=== PATIENT | male | born 1940 | race Caucasian/White ===

== ENCOUNTER → 2017-05-03 | Outpatient (CLI) | payer OTHER ==
[~2017-05-03] MED LIST: ALFU10TA23 PO; ALLO300T PO; ASCO500C PO; CELE200C PO; FURO40TA4 PO; LIDO700A4 TP; METO25TA4 PO; NAFT40GE TP; OMEG500C PO; OMEP40CA5 PO; POTA20TA12 PO; PREG200C PO; SIMV40TA PO; SITA100T PO; SPIR1POW3 MC; SPIR25TA3 PO; TORS20TA2 PO; TRAM50TA PO; UBID100C PO; WARF6TAB PO; [UNRECOGNIZED DRUG - CODE] TP
--- NOTE | 2017-05-03 12:47 | RAD ---
Indication pain. Injured doing on work. AP lateral and coned view targeted to the lumbosacral junction were obtained. Note is made of a CT examination of the lumbar spine 11/07/2010. No prior plain film imaging of the lumbar spine is available. Vertebral height is well maintained. Alignment is unremarkable. There is multilevel disc space narrowing with some associated degenerative endplate changes. Vacuum disc phenomenon is noted at several levels. Osteophytes to are seen at several levels. With regards to the lumbar spine no acute finding is seen. There is slight wedging of T12 which appears slightly more accentuated than on a CT examination of 11/07/2010. There is mild scoliosis of the lumbar spine. 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 Mild wedging of T12 the chronicity of which is not certain
--- NOTE | 2017-05-03 12:55 | RAD ---
Indication left hip pain. An AP view of the pelvis was obtained as well as a frog leg view of the left hip. There are mild degenerative changes involving the hips manifested as some slight joint space compartment narrowing. A fracture or acute finding involving the pelvis or left hip is not seen.
== END | disposition home or self-care (01) ==
LOC: DXRADRC 12:20
PROVIDERS: ATTEND Nurse Practitioner Family
DX: M47.896 Other spondylosis, lumbar region (principal); M41.86 Other forms of scoliosis, lumbar region; M16.12 Unilateral primary osteoarthritis, left hip; M48.54XA Collapsed vertebra, not elsewhere classified, thoracic region, initial encounter for fracture
CPT/HCPCS: 72100; 73501

== ENCOUNTER → 2017-05-07 | Outpatient (CLI) | payer MEDICARE, OTHER ==
--- NOTE | 2017-05-07 12:30 | RAD ---
CT lumbar spine without contrast 05/07/2017 Indication: Chronic lower back pain. History of laser disk repair 3 years ago. Comparison: CT lumbar spine 11/07/2010 Technique: Multiple axial CT images of the lumbar spine were obtained without intravenous contrast. Coronal and sagittal reformats are provided. Findings: There is dextroconvex scoliosis of the lumbar spine centered at L3. There is left lateral listhesis of L2 on L3 and right lateral listhesis of L3 on L4. There is vacuum disc phenomenon at T12-L1, L1-L2, L2-L3, L4-L5 and L5-S1. There is significant endplate sclerosis with disc height loss and subcortical cystic changes at L1-L2, L2-L3, L4-L5 and L5-S1. There is minimal retrolisthesis of L1 on L2 and L2 on L3. Vertebral body heights are maintained. No evidence for acute fracture. There is partial visualization of an infrarenal abdominal aortic aneurysm measuring at least 3.6 cm. Finding appears present on prior examination from 11/07/2010. Comparison is difficult to make given partial profiling. T12-L1: There is a diffuse disc bulge. There is mild facet arthropathy. There is mild right neural foraminal stenosis. Mild spinal canal stenosis. L1-L2: There is a posterior disc osteophyte complex. There is mild facet arthropathy. There is moderate right and moderate to severe left neural foraminal stenosis. There is mild spinal canal stenosis. L2-L3: There is a posterior disc osteophyte complex. There is moderate right and severe left facet arthropathy. Moderate right and severe left neuroforaminal stenosis. Mild spinal canal stenosis. L3-L4: There is a diffuse disc bulge. There is severe left and moderate right facet arthropathy. There is moderate right and severe left neuroforaminal stenosis. Mild spinal canal stenosis. L4-L5: There is minimal disc bulge. There is moderate to severe facet arthropathy. Moderate left and mild right neuroforaminal stenosis. No significant spinal canal stenosis. L5-S1: There is posterior disc osteophyte complex. There is severe facet arthropathy. Moderate right and mild left neural foraminal stenosis. No spinal canal stenosis. Impression: 1. There is interval worsening of dextroconvex scoliosis with left lateral listhesis of L2 on L3 with right lateral listhesis of L3 on L4. There is similar appearance of retrolisthesis of L1 on L2 and L2 on L3. 2. There is increase in degree of neural foraminal stenosis on the right at L2-L3 and L3-L4. 3. Partial visualization of an abdominal aortic aneurysm measuring maximally 3.6 cm. Further evaluation with CTA abdomen/pelvis may be of benefit. PQRS Compliance Statement: One or more of the following individualized dose reduction techniques were utilized for this examination: 1. Automated exposure control 2. Adjustment of the mA and/or kV according to patient size 3. Use of iterative reconstruction technique
== END | disposition home or self-care (01) ==
LOC: CT 08:49
PROVIDERS: ATTEND Nurse Practitioner Family
DX: M48.07 Spinal stenosis, lumbosacral region (principal); M51.26 Other intervertebral disc displacement, lumbar region; M41.86 Other forms of scoliosis, lumbar region; M12.88 Other specific arthropathies, not elsewhere classified, other specified site; I71.4 Abdominal aortic aneurysm, without rupture
CPT/HCPCS: 72131

== ENCOUNTER → 2018-08-11 | Outpatient (CLI) | payer MEDICARE, OTHER ==
[~2018-08-11] MED LIST changes: -SPIR25TA3 PO; +SPIR25TA5 PO
--- NOTE | 2018-08-11 10:11 | RAD ---
Ultrasound testicular 08/11/2018 Clinical indication: Testicular swelling. COMPARISON: None. FINDINGS: Right testis measures 3.6 x 3.4 x 4.8 cm with preservation of the intratesticular blood flow. There is a tiny intratesticular cyst in the inferior aspect of the right testis measuring 0.3 x 0.2 x 0.3 cm. There is a small right hydrocele. The visualized right epididymis is unremarkable. Left testis is homogeneous in echotexture with preservation of the intratesticular blood flow measuring 3.6 x 2.6 x 5.1 cm. The visualized left epididymis is unremarkable. There is a large left hydrocele. IMPRESSION: 1. No testicular torsion or evidence of acute epididymoorchitis. 2. Large left and small right hydroceles. Electronically signed by: Deep Miller MD (08/11/2018 10:06 AM) [facility]
== END | disposition home or self-care (01) ==
LOC: US 09:00
PROVIDERS: ATTEND Physician Assistant Medical
DX: N43.2 Other hydrocele (principal)
CPT/HCPCS: 76870

== ENCOUNTER 2020-04-08 13:12 | Emergency (ER) | payer MEDICARE, OTHER ==
[~2020-04-08] VITALS: Ht 190.5 cm; Wt 112.2 kg
[~2020-04-08 13:12] MED LIST changes: +OMEP40CA45 PO; -OMEP40CA5 PO
--- NOTE | 2020-04-08 13:41 | PHYS DOC ---
Past History Past Medical History: A-Fib, Cancer, Prostatitis Past Surgical History: Cancer Surgery, Pacemaker Alcohol Use: None General Adult EDM: Chief Complaint: PENIS PROBLEM HPI: HPI: Patient is a 79-year-old male who presents with a chief complaint of hematuria. Patient has a history of prostate cancer and had carbon seeds placed 2 days ago. Patient has a history of chronic A. fib and restart his Lovenox yesterday and noticed a dark urine that got worse overnight and into the morning. Patient noticed some clots coming from his penis. Patient denies any abdominal pain or distention. Patient denies any fevers, nausea or vomiting. Patient states he is able to void. Review of Systems: Review of Systems: Constitutional: Denies fever or chills Eyes: Denies change in visual acuity HENT: Denies nasal congestion or sore throat Respiratory: Denies cough or shortness of breath Cardiovascular: Denies chest pain or edema GI: Denies abdominal pain, nausea, vomiting, bloody stools or diarrhea : Complains of hematuria Musculoskeletal: Denies back pain or joint pain Integument: Denies rash Neurologic: Denies headache, focal weakness or sensory changes Endocrine: Denies polyuria or polydipsia Lymphatic: Denies swollen glands Psychiatric: Denies depression or anxiety Heart Score: Risk Factors: Risk Factors: DM, Current or recent (<one month) smoker, HTN, HLP, family history of CAD, obesity. Risk Scores: Score 0 - 3: 2.5% MACE over next 6 weeks - Discharge Home Score 4 - 6: 20.3% MACE over next 6 weeks - Admit for Clinical Observation Score 7 - 10: 72.7% MACE over next 6 weeks - Early Invasive Strategies Allergies: Allergies: Allergies Coded Allergies Type Severity Reaction Last Updated Verified diltiazem Allergy Unknown 12/04/13 Yes Physical Exam: PE: Constitutional: Well developed, well nourished, no acute distress, non-toxic appearance. [] HENT: Normocephalic, atraumatic, bilateral external ears normal, no trismus nose normal. [] Eyes: PERRLA, EOMI, conjunctiva normal, no discharge. [] Neck: Normal range of motion, no tenderness, supple, no stridor. [] Cardiovascular: Irregular, peripheral pulses intact Lungs & Thorax: Bilateral breath sounds clear, no respiratory distress Abdomen: , soft, no tenderness, no masses, no pulsatile masses. [] exam: Mild dried blood to the urethral meatus mild swelling to the left testicle no tenderness. Skin: Warm, dry, no erythema, no rash. [] Back: No tenderness, no CVA tenderness. [] Extremities: No tenderness, no cyanosis, no clubbing, ROM intact, no edema. [] Neurologic: Alert and oriented X 3, normal motor function, normal sensory function, no focal deficits noted. [] Psychologic: Affect normal, judgement normal, mood normal. [] Current Patient Data: Labs: Laboratory Tests Test 04/08/20 14:21 04/08/20 15:30 White Blood Count 4.2 x10^3/uL Red Blood Count 4.34 x10^6/uL Hemoglobin 13.2 g/dL Hematocrit 40.3 % Mean Corpuscular Volume 93 fL Mean Corpuscular Hemoglobin 30 pg Mean Corpuscular Hemoglobin Concent 33 g/dL Red Cell Distribution Width 17.0 % Platelet Count 132 x10^3/uL Neutrophils (%) (Auto) 61 % Lymphocytes (%) (Auto) 29 % Monocytes (%) (Auto) 8 % Eosinophils (%) (Auto) 2 % Basophils (%) (Auto) 1 % Neutrophils # (Auto) 2.6 x10^3uL Lymphocytes # (Auto) 1.2 x10^3/uL Monocytes # (Auto) 0.3 x10^3/uL Eosinophils # (Auto) 0.1 x10^3/uL Basophils # (Auto) 0.0 x10^3/uL Prothrombin Time 11.0 SEC Prothromb Time International Ratio 1.1 Sodium Level 141 mmol/L Potassium Level 3.1 mmol/L Chloride Level 104 mmol/L Carbon Dioxide Level 32 mmol/L Anion Gap 5 Blood Urea Nitrogen 20 mg/dL Creatinine 1.4 mg/dL Estimated GFR (Cockcroft-Gault) 49.1 Glucose Level 151 mg/dL Calcium Level 10.4 mg/dL Urine Collection Type Unknown Urine Color Red Urine Clarity Turbid Urine pH Urine Specific [place] Urine Protein Urine Glucose (UA) mg/dL Urine Ketones (Stick) mg/dL Urine Blood Urine Nitrite Urine Bilirubin Urine Urobilinogen Dipstick mg/dL Urine Leukocyte Esterase Urine RBC Tntc /HPF Urine WBC 0 /HPF Urine Squamous Epithelial Cells None /LPF Urine Bacteria 0 /HPF Current Medications Medications (Trade) Dose Ordered Sig/Sae Route PRN Reason Start Time Stop Time Status Last Admin Dose Admin Potassium Chloride (Klor-Con) 40 meq 1X ONCE PO 04/08/20 15:00 04/08/20 15:01 DC 04/08/20 15:06 Laboratory Tests Test 04/08/20 14:21 White Blood Count 4.2 x10^3/uL Red Blood Count 4.34 x10^6/uL Hemoglobin 13.2 g/dL Hematocrit 40.3 % Mean Corpuscular Volume 93 fL Mean Corpuscular Hemoglobin 30 pg Mean Corpuscular Hemoglobin Concent 33 g/dL Red Cell Distribution Width 17.0 % Platelet Count 132 x10^3/uL Neutrophils (%) (Auto) 61 % Lymphocytes (%) (Auto) 29 % Monocytes (%) (Auto) 8 % Eosinophils (%) (Auto) 2 % Basophils (%) (Auto) 1 % Neutrophils # (Auto) 2.6 x10^3uL Lymphocytes # (Auto) 1.2 x10^3/uL Monocytes # (Auto) 0.3 x10^3/uL Eosinophils # (Auto) 0.1 x10^3/uL Basophils # (Auto) 0.0 x10^3/uL Prothrombin Time 11.0 SEC Prothromb Time International Ratio 1.1 Sodium Level 141 mmol/L Potassium Level 3.1 mmol/L Chloride Level 104 mmol/L Carbon Dioxide Level 32 mmol/L Anion Gap 5 Blood Urea Nitrogen 20 mg/dL Creatinine 1.4 mg/dL Estimated GFR (Cockcroft-Gault) 49.1 Glucose Level 151 mg/dL Calcium Level 10.4 mg/dL Current Medications Medications (Trade) Dose Ordered Sig/Sae Route PRN Reason Start Time Stop Time Status Last Admin Dose Admin Potassium Chloride (Klor-Con) 40 meq 1X ONCE PO 04/08/20 15:00 04/08/20 15:01 DC 04/08/20 15:06 Vital Signs: Vital Signs Date Time Temp Pulse Resp B/P (MAP) Pulse Ox O2 Delivery O2 Flow Rate FiO2 04/08/20 13:24 98.0 68 16 138/74 (95) 95 Room Air EKG: EKG: [] Radiology/Procedures: Radiology/Procedures: [] Course & Med Decision Making: Course & Med Decision Making Pertinent Labs and Imaging studies reviewed. (See chart for details) [] 79-year-old male presents with hematuria. Patient has a history of atrial fibrillation and is on chronic anticoagulation. Patient states he took Lovenox twice yesterday and once today and took a 10 mg of Coumadin yesterday. I discussed the case with the nurse at his urology office who spoke with his urologist and suggest that he hold on the Coumadin if he has bleeding and he is okay to go home as long as able to void. On reassessment patient is able to void has no abdominal pain. I discussed with him holding tonight's Lovenox dose and holding Coumadin over the weekend but restarting the Lovenox and return if he has increased bleeding or pain. Patient understands and will return if concerns. Dragon Disclaimer: Dragon Disclaimer: This electronic medical record was generated, in whole or in part, using a voice recognition dictation system. Departure Departure: Impression: Primary Impression: Hematuria Disposition: 01 HOME/RESIDENCE PRIOR TO ADM Condition: STABLE Referrals: LAMBERTO NAVA (PCP) Or urologist next week Patient Instructions: Hematuria, Adult Additional Instructions: EMERGENCY DEPARTMENT GENERAL DISCHARGE INSTRUCTIONS THANK YOU for coming to [facility] Emergency Department (ED) today and trusting us with your care. We trust that you had a positive experience in our Emergency Department. If you wish to speak to the department Management you can contact the emergency department at YOUR FOLLOW UP INSTRUCTIONS ARE FOLLOWS: Do you have a private doctor? If you do not have a private doctor, please ask for a resource list of physicians or clinics that may be able to assist you with follow up care. The Emergency Physician has interpreted your x-rays. The X-ray specialist will also review them. If there is a change in the findings you will be notified in 48 hours when at all possible. A lab test or lab culture may have been done, your results will be reviewed and you will be notified if you need a change in treatment. ADDITIONAL INSTRUCTIONS AND INFORMATION Your care today has been supervised by a physician who is specially trained in emergency care. Many problems require more than one evaluation for a complete diagnosis and treatment. We recommend that you schedule your follow up appointment as recommended to ensure complete treatment of your illness or injury. If you are unable to obtain follow up care and continue to have a problem, or if your condition worsens we recommend that you return to the ED. We are not able to safely determine your condition over the phone nor are we a ble to give sound medical advice over the phone. For these safety reasons, if you call for medical advice we will ask you to come to the ED for further evaluation If you have any questions regarding these discharge instructions please call the ED at . SAFETY INFORMATION In the interest of safety, wellness, and injury prevention; we encourage you to wear your seatbelt, if you smoke; quit smoking, and we encourage your family to use protective helmet for bicycling and other sporting events that present an increased risk for head injury. IF YOUR SYMPTOMS WORSEN OR NEW SYMPTOMS DEVELOP, OR YOU HAVE CONCERNS ABOUT YOUR CONDITION; OR IF YOUR CONDITION WORSENS WHILE YOU ARE WAITING FOR YOUR FOLLOW UP APPOINTMENT; EITHER CONTACT YOUR PRIMARY CARE DOCTOR, THE PHYSICIAN WHOSE NAME AND NUMBER YOU WERE GIVEN, OR RETURN TO THE ED IMMEDIATELY. Return if pain, fever, worsening bleeding or unable to urinate. Do not take the Lovenox tonight but restart tomorrow if the bleeding is controlled. Hold on Coumadin over the weekend and call explosive ordnance manager on Saturday to guide on anticoagulation. Scripts Cephalexin (KEFLEX) 500 Mg Capsule 500 MG PO Q6HRS for HEMATURIA for 5 Days, #20 CAP Prov: FOSTER DOYLE MD 04/08/20 Justification of Admission: Justification of Admission: Justification of Admission Dx: N/A FOSTER DOYLE MD Apr 08, 2020 13:41
[2020-04-08 14:20] VITALS: BP 112/57
[2020-04-08 14:45] LABS: CALCIUM 10.4 mg/dL (8.5-10.1); CREATININE 1.4 mg/dL (0.7-1.3); GFR 49.1; POTASSIUM 3.1 mmol/L (3.5-5.1)
[2020-04-08 14:50] LABS: BASO % 1 % (0-3); EOS # 0.1 x10^3/uL (0.0-0.7); EOS % 2 % (0-3); HEMATOCRIT 40.3 % (39.0-53.0); HEMOGLOBIN 13.2 g/dL (13.0-17.5); LYMPH # 1.2 x10^3/uL (1.0-4.8); LYMPH % 29 % (24-48); MEAN CORPUSCULAR HEMOGLOBIN 30 pg (25-35); MEAN CORPUSCULAR HGB CONC 33 g/dL (31-37); MEAN CORPUSCULAR VOLUME 93 fL (79-100); MONO # 0.3 x10^3/uL (0.0-1.1); MONO % 8 % (0-9); NEUT # 2.6 x10^3uL (1.8-7.7); NEUT % 61 % (31-73); PLATELET COUNT 132 x10^3/uL (140-400); RED BLOOD COUNT 4.34 x10^6/uL (4.30-5.70); WHITE BLOOD COUNT 4.2 x10^3/uL (4.0-11.0)
[2020-04-08] MEDS ORDERED: POTASSIUM CHLORIDE 20 MEQ TABLET.ER. PO ONE (15:00)
[2020-04-08] MEDS ORDERED: CEPH-264 PO (15:29)
[2020-04-08 15:56] LABS: CLARITY,URINE TURBID; COLOR,URINE RED
[2020-04-08 15:57] LABS: BACTERIA,URINE 0 /HPF (0-FEW); RBC,URINE TNTC /HPF (0-2); WBC,URINE 0 /HPF (0-4)
== END 2020-04-08 15:37 | disposition home or self-care (01) ==
LOC: ER 13:12
DX: R31.9 Hematuria, unspecified (principal); I48.91 Unspecified atrial fibrillation; Z79.01 Long term (current) use of anticoagulants; Z95.0 Presence of cardiac pacemaker; Z85.46 Personal history of malignant neoplasm of prostate; Z88.8 Allergy status to other drugs, medicaments and biological substances
CPT/HCPCS: 36415; 80048; 81001; 85025; 85610; 99283